=== PATIENT | male | born 1970 | race Caucasian/White ===

== ENCOUNTER 2020-07-23 12:42 | Emergency (ER) | payer OTHER ==
[~2020-07-23 12:42] MED LIST: 24HR ALLERGY REL5 MG PO; CHANTIX0.5 MG PO; CYCLOBENZAPRINE10 MG PO; FLOMAX 0.4 MG0.4 MG PO; FLONASE 0.05% N16 GM; IBUPROFEN600 MG PO; VITAMIN D375 MCG PO; VOLTAREN ARTHRI20 GM TP
[2020-07-23] MEDS ORDERED: PREDNISONE 50 M50 MG PO (14:11)
[2020-07-23] MEDS ORDERED: BENADRYL25 MG PO (14:11)
== END 2020-07-23 16:00 | disposition home or self-care (01) ==
LOC: ER1 12:42
DX: R21 Rash and other nonspecific skin eruption (principal); T39.8X5A Adverse effect of other nonopioid analgesics and antipyretics, not elsewhere classified, initial encounter; T38.0X5A Adverse effect of glucocorticoids and synthetic analogues, initial encounter; M06.9 Rheumatoid arthritis, unspecified; I10 Essential (primary) hypertension; E78.5 Hyperlipidemia, unspecified; K21.9 Gastro-esophageal reflux disease without esophagitis; F17.210 Nicotine dependence, cigarettes, uncomplicated
CPT/HCPCS: 99282; J0171; J1200; J2930; J7030

== ENCOUNTER 2020-10-23 13:46 | Emergency (ER) | payer SELFPAY ==
[~2020-10-23 13:46] MED LIST changes: +BENADRYL25 MG PO; +PREDNISONE 50 M50 MG PO
[2020-10-23 14:39] LABS: HEMOGLOBIN 17.1 gm/dl (14.0-17.5); RED BLOOD COUNT 5.36 M/UL (4.20-5.50); WHITE BLOOD COUNT 1.7 K/UL (4.5-11.0)
[2020-10-23 14:56] LABS: BORDETELLA PARAPERTUSSIS Not Detected (Not Detectd); BORDETELLA PERTUSSIS Not Detected (Not Detectd); CHLAMYDIA PNEUMONIAE Not Detected (Not Detectd); CORONAVIRUS HKU1 Not Detected (Not Detectd); CORONAVIRUS NL63 Not Detected (Not Detectd); CORONAVIRUS OC43 Not Detected (Not Detectd); CORONOAVIRUS 229E Not Detected (Not Detectd); HUMAN METAPNEUMOVIRUS Not Detected (Not Detectd); HUMAN RHINOVIRUS/ENTEROVIRUS Not Detected (Not Detectd); INFLUENZA A Not Detected (Not Detectd); INFLUENZA B Not Detected (Not Detectd); MYCOPLASMA PNEUMONIAE Not Detected (Not Detectd); PARAINFLUENZA VIRUS 1 Not Detected (Not Detectd); PARAINFLUENZA VIRUS 2 Not Detected (Not Detectd); PARAINFLUENZA VIRUS 3 Not Detected (Not Detectd); PARAINFLUENZA VIRUS 4 Not Detected (Not Detectd); RESPIRATORY SYNCYTIAL VIRUS Not Detected (Not Detectd)
[2020-10-23 15:04] LABS: BUN/CREATININE RATIO 8 (0-10)
[2020-10-23 16:10] LABS: SARS-CoV-2 NOT DETECTED (Not Detectd)
[2020-10-23] MEDS ORDERED: DOXYCYCLINE HY100 MG PO (17:03)
[2020-10-26 04:10] LABS: HBSAG SCREEN Negative (Negative); HEP A AB, IGM Negative (Negative); HEP B CORE AB, IGM Negative (Negative); HEP C VIRUS AB <0.1 (0.0-0.9)
[2020-10-27 07:11] LABS: A. PHAGOCYTOPHILUM PCR Negative (Negative)
[2020-10-28 15:12] LABS: E. CHAFFEENSIS (HME) IGG TITER Negative (Neg:<1:64)
[2020-11-02 08:26] LABS: E. CHAFFEENSIS (HME) IGM TITER Negative (Neg:<1:20)
[2020-11-02 08:27] LABS: EHRLICHIA CHAFFEENSIS PCR Positive (Negative)
== END 2020-10-23 20:00 | disposition left against medical advice (07) ==
LOC: ER1 13:46
PROVIDERS: Emergency Medicine
DX: D69.6 Thrombocytopenia, unspecified (principal); D70.9 Neutropenia, unspecified; R74.01 Elevation of levels of liver transaminase levels; R91.1 Solitary pulmonary nodule; F17.200 Nicotine dependence, unspecified, uncomplicated; Z20.822 Contact with and (suspected) exposure to COVID-19
CPT/HCPCS: 70450; 71045; 80053; 80074; 80307; 81001; 82550; 82553; 83605; 83690; 83735; 83874; 83880; 84100; 84484; 85025; 85610; 85730; 86618; 86666; 86757; 87040; 87086; 87633; 87798; 93005; 96365; 96366; 99284